=== PATIENT | male | born 1985 | race African-American/Black ===

== ENCOUNTER 2018-04-12 11:56 | Emergency (ER) | payer MEDICAID, OTHER ==
[~2018-04-12] VITALS: Ht 162.6 cm; Wt 99.8 kg
[2018-04-12 12:15] VITALS: BP 141/69
== END 2018-04-12 13:46 | disposition home or self-care (01) ==
LOC: ER 12:14
DX: Z76.0 Encounter for issue of repeat prescription (principal)

== ENCOUNTER 2018-04-28 02:35 | Emergency (ER) | payer MEDICAID ==
[~2018-04-28] VITALS: Ht 162.6 cm; Wt 99.8 kg
[2018-04-28 02:38] VITALS: BP 137/89
== END 2018-04-28 03:55 | disposition left against medical advice (07) ==
LOC: ER 02:38
DX: N50.811 Right testicular pain (principal); Z53.21 Procedure and treatment not carried out due to patient leaving prior to being seen by health care provider

== ENCOUNTER 2020-04-23 19:28 | Emergency (ER) | payer MEDICAID ==
[~2020-04-23] VITALS: Ht 162.6 cm; Wt 109.3 kg
[2020-04-23 20:09] VITALS: BP 160/85
[2020-04-23] MEDS ORDERED: SODIUM CHLORIDE 0.9% 1,000 ML IV ONE (20:15)
[2020-04-23 22:19] LABS: Urine Bacteria NONE SEEN /hpf (None Seen); Urine Blood 3+ /uL (Negative); Urine Mucus FEW (None Seen); Urine Specific Gravity 1.017 (1.001-1.035); Urine WBC 6 /hpf (0 - 3)
[2020-04-23] MEDS ORDERED: IBUPROFEN 600 MG TAB PO ONE (23:30)
[2020-04-23 23:45] LABS: Basophils # (auto) 0.1 10 ^3/uL (0-0.2); Basophils % (auto) 0.4 % (0.0-2.0); Eosinophils # (auto) 0.1 10 ^3/uL (0-0.8); Eosinophils % (auto) 0.4 % (0.0-7.0); Hematocrit 48.2 % (41.0-53.0); Lymphocytes # (auto) 1.8 10 ^3/uL (0.4-5.4); Lymphocytes % (auto) 12.6 % (10.0-50.0); Mean Corpuscular Hgb Conc. 33.2 g/dL (32.0-36.0); Mean Corpuscular Volume 84.1 fL (80.0-100.0); Monocytes # (auto) 1.1 10 ^3/uL (0-1.3); Monocytes % (auto) 7.9 % (0.0-12.0); Neutrophils # (auto) 11.1 10 ^3/uL (1.6-8.6); Neutrophils % (auto) 78.7 % (37.0-80.0); Nucleated Red Blood Cells % 0.1 %; Platelet Count (auto) 220 10^3/uL (140-450); Red Blood Cells 5.73 10^6/uL (4.5-5.90); Red Cell Distribution Width 13.9 % (11.8-14.3); White Blood Cell 14.1 10^3/uL (4.4-10.8)
[2020-04-24 00:07] LABS: Albumin 3.9 g/dL (3.4-5.0); Potassium 4.1 mmol/L (3.5-5.1)
[2020-04-24 00:10] LABS: BUN/Creatinine Ratio 11.1; Bilirubin, Direct 0.2 mg/dL (0-0.2); Bilirubin, Total 0.5 mg/dL (0.2-1.0); Total Protein 8.4 g/dL (6.4-8.2)
== END 2020-04-24 06:51 | disposition left against medical advice (07) ==
LOC: ER 19:28
DX: N50.819 Testicular pain, unspecified (principal); Z53.21 Procedure and treatment not carried out due to patient leaving prior to being seen by health care provider
CPT/HCPCS: 76870; 80048; 80076; 81001; 83605

== ENCOUNTER 2022-11-04 03:30 | Emergency (ER) | payer MEDICAID ==
[~2022-11-04] VITALS: Ht 162.6 cm; Wt 86.0 kg
[2022-11-04] MEDS ORDERED: BACDST PO (04:10)
[2022-11-04] MEDS ORDERED: CEPH500C PO (04:10)
[2022-11-04 05:39] VITALS: BP 135/86; PULSE 78; RESP 18; TEMP 97.8; O2SAT 97
== END 2022-11-04 05:40 | disposition home or self-care (01) ==
LOC: ER 03:30
DX: L02.416 Cutaneous abscess of left lower limb (principal); L02.415 Cutaneous abscess of right lower limb; Z88.6 Allergy status to analgesic agent

== ENCOUNTER 2022-12-09 21:36 | Emergency (ER) | payer MEDICAID ==
[~2022-12-09] VITALS: Ht 162.6 cm; Wt 104.0 kg
[2022-12-09 21:36] VITALS: BP 113/77; PULSE 106; RESP 18; O2SAT 97
[~2022-12-09 21:36] MED LIST: BACDST PO; CEPH500C PO
[2022-12-09 22:17] LABS: Urine Bacteria NONE SEEN /hpf (None Seen); Urine Blood Negative /uL (Negative); Urine Clarity Clear (Clear); Urine Color Yellow (Yellow); Urine Mucus FEW (None Seen); Urine Protein, UAD 1+ (Negative); Urine Specific Gravity 1.028 (1.001-1.035); Urine WBC 1 /hpf (0 - 3)
[2022-12-09] MEDS ORDERED: AZITHROMYCIN 250 MG TAB PO ONE (23:30)
[2022-12-09] MEDS ORDERED: cefTRIAXone SOD 500 MG VL IM ONE (23:30)
[2022-12-10] MEDS ORDERED: CLOT1CRE TOP (00:37)
== END 2022-12-10 02:47 | disposition home or self-care (01) ==
LOC: ER 21:36
DX: N48.1 Balanitis (principal); Z79.899 Other long term (current) drug therapy; Z88.8 Allergy status to other drugs, medicaments and biological substances
CPT/HCPCS: 81001; 96372; 99283; J0696

== ENCOUNTER 2024-09-05 15:31 | Emergency (ER) | payer MEDICAID ==
[~2024-09-05] VITALS: Ht 162.6 cm; Wt 117.7 kg
[~2024-09-05 15:31] MED LIST changes: +CLOT1CRE TOP
[2024-09-05] MEDS ORDERED: DOXY-286 PO (17:32)
--- NOTE | 2024-09-05 17:33 | ED.PDOC ---
General HPI Comments 38-year-old male with a past medical history of HIV presents to the emergency department with a chief compliant of testicular pain onset 2 days. Patient states he had sexual intercourse with two different partners, males, did not use protection. Shortly after, patient began experiencing painful urination with burning sensation as well as testicular pain. Patient is compliant with HIV medication, has appointment with specialist in 2 months. No other symptoms or modifying factors present at this time. Denies fevers chills night sweats Denies pelvic pain Denies nausea vomiting diarrhea Denies blood in the urine or semen Denies current tobacco use Denies family history of prostate issues Chief Complaint: Urinary Time Seen by MD: 16:30 Primary Care Provider: UNK Reviewed notes: Nurses Notes, Medications, Allergies Allergies: Coded Allergies: Aspirin (Verified Allergy, Unknown, 09/26/21) Ketorolac Tromethamine (Verified Allergy, Unknown, 04/23/20) Home Meds Active Scripts Sulfamethoxazole W/Trimethopri (Bactrim Ds Tablet) 1 Tab Tb, 1 TAB PO BID for 10 Days, #20 TAB 0 Refills Prov:BOB HSIEH PAYROLL ASSISTANT 09/06/24 Doxycycline Hyclate (DOXYCYCLINE HYCLATE) 100 Mg Tab, 1 TAB PO BID for 7 Days, #14 TAB 0 Refills Prov:BOB HSIEH PAYROLL ASSISTANT 09/05/24 Clotrimazole (Clotrimazole Af) 1 % Cre, 1 APPLIC TOP TID for 7 Days, #30 CRE Prov:ROMY VEE MANUFACTURING PROCESS ENGINEER 12/10/22 Cephalexin Monohydrate (Cephalexin) 500 Mg Cap, 1 CAP PO QID for 10 Days, #40 CAP Prov:KARIE JORDAN PAYROLL ASSISTANT 11/04/22 Sulfamethoxazole W/Trimethopri (Bactrim Ds Tablet) 1 Tab Tb, 1 TAB PO BID for 10 Days, #20 TAB Prov:KARIE JORDAN PAYROLL ASSISTANT 11/04/22 Information Source: Patient Mode of Arrival: Ambulatory Severity: Moderate Timing: Days Duration: Since onset Prehospital treatment: None Onset: Following sexual contact Symptoms: Dysuria History of: STD Penile discharge: None Modifying factors: None associated signs and symptoms: Dysuria Past Medical History PAST MEDICAL HISTORY: HIV Surgical History: Denies all surgeries Family History Family History: Reviewed,noncontributory to illness, No family hx of Cancer, No family hx of DM, No family hx of Heart isaac, No family hx of HTN, No family hx ofKidney isaac, No family hx of Liver isaac, No family hx of Lung isaac, No family hx of Stroke Social History Smoker: Non-Smoker Alcohol: Denies ETOH Use Drugs: Denies Drug Use Lives In: Home All Other Systems: Reviewed and Negative (as per HPI) Physical Exam General Appearance: No Apparent Distress, Normal HEENT: Normal ENT Inspection, Pharynx Normal, TMs Normal Neck: Full Range of Motion, Non-Tender, Normal, Normal Inspection Respiratory: Chest Non-Tender, Lungs Clear, No Accessory Muscle Use, No Respiratory Distress, Normal Breath Sounds Cardiovascular: No Murmur, No Gallop, Regular Rate/Rhythm Breast Exam: Deferred Gastrointestinal: No Organomegaly, Non Tender, No Pulsatile Mass, Normal Bowel Sounds, Soft Genitalia: Deferred Pelvic: Deferred Rectal: Deferred Extremities: No calf tenderness, Normal capillary refill, Normal inspection, Normal range of motion, Non-tender, No pedal edema Musculoskeletal : Apperance: Normal Neurologic: Alert, No Motor Deficits, Normal Affect, Normal Mood, No Sensory Deficits Cerebellar Function: Normal Reflexes: Normal Skin: Dry, Normal Color, Warm Lymphatic: No Adenopathy Was a procedure done? Was a procedure done?: No Differential Diagnosis Kidney stone (Female): Other X-Ray, Labs, Meds, VS Vital Signs Date Time Temp Pulse Resp B/P (MAP) Pulse Ox O2 Delivery O2 Flow Rate FiO2 09/05/24 18:00 98.3 97 16 142/97 (112) 97 98.3 09/05/24 18:00 78 16 97 Room Air 09/05/24 16:02 98.4 98 16 152/100 (117) 97 98.4 Lab Test 09/05/24 17:29 09/05/24 16:29 Range/Units Urine Color Yellow Yellow Urine Clarity Clear Clear Urine pH 5.5 5.0-9.0 Urine Specific [place] 1.025 1.001-1.035 Urine Protein Negative Negative Urine Ketones Negative Negative Urine Blood Negative Negative /uL Urine Nitrite Negative Negative Urine Bilirubin Negative Negative Urine Urobilinogen Normal Negative mg/dL Urine Leukocyte Esterase 1+ Negative /uL Urine RBC 2 0 - 3 /hpf Urine Microscopic WBC 20 H 0-3 /HPF Urine Squamous Epithelial Cells None seen <5 /hpf Urine Bacteria None seen None Seen /hpf Urine Mucus Few None Seen Urine Glucose Normal Normal mg/dL Chlamydia trachomatis (JUSTIN) Negative Negative Neisseria gonorrhoeae (JUSTIN) Negative Negative X-Ray, Labs, Meds, VS Comment 38-year-old male with a past medical history of HIV presents to the emergency department with a chief compliant of testicular pain onset 2 days. Patient arrives alert and oriented, ABC's intact, afebrile, vital signs stable, saturating well in room air Urinalysis was ordered to rule out UTI or hematuria. Patient was given: Ceftriaxone 1000 mg PO. Tolerated medications with no adverse reaction. Additional MDM Review of External, Non-ED records: External records reviewed. Discussion with independent historian (EMS, family) history obtained from the patient/parents (if applicable) at bedside Chronic conditions affecting care: HIV Social determinants of health affecting care: None Consideration of admission (observation or admission): I considered escalation of care to admission for this patient, however given the reassuring workup, the patient is safe for outpatient management. Time of 1ST Reevaluation: 17:00 Reevaluation 1ST: Improved Patient Education/Counseling: Diagnosis, Treatment Family Education/Counseling: No Family Present Departure 1 Departure Time of Disposition: 17:29 Impression: Primary Impression: Urethritis Disposition: HOME / SELF CARE / HOMELESS Condition: Stable e-Prescriptions Sulfamethoxazole W/Trimethopri (Bactrim Ds Tablet) 1 Tab Tb 1 TAB PO BID for 10 Days, #20 TAB 0 Refills Prov: BOB HSIEH NP 09/06/24 Doxycycline Hyclate (DOXYCYCLINE HYCLATE) 100 Mg Tab 1 TAB PO BID for 7 Days, #14 TAB 0 Refills Prov: BOB HSIEH NP 09/05/24 Critical Care Note Critical Care Time?: No Stability Stability form required: No Heart Score Heart Score: Heart Score Response (Comments) Value History N/A 0 EKG N/A 0 Age N/A 0 Risk Factors N/A 0 Troponin N/A 0 Total 0 I personally scribed for BOB HSIEH NP ([email or web address]) on 09/05/24 at 17:47. Electronically submitted by Mary Oliver ([email or web address]). BOB HSIEH NP Sep 05, 2024 17:33
--- NOTE | 2024-09-05 17:40 | ED.PDOC ---
General HPI Comments 38-year-old male with a past medical history of HIV presents to the emergency department with a chief compliant of testicular pain onset 2 days. Patient states he had sexual intercourse with two different partners, males, did not use protection. Shortly after, patient began experiencing painful urination with burning sensation as well as testicular pain. Patient is compliant with HIV medication, has appointment with specialist in 2 months. No other symptoms or modifying factors present at this time. Denies fevers chills night sweats Denies pelvic pain Denies nausea vomiting diarrhea Denies blood in the urine or semen Denies current tobacco use Denies family history of prostate issues Denies rectal bleeding Chief Complaint: Urinary Time Seen by MD: 17:05 Primary Care Provider: UNK Reviewed notes: Medications, Allergies Allergies: Coded Allergies: Aspirin (Verified Allergy, Unknown, 09/26/21) Ketorolac Tromethamine (Verified Allergy, Unknown, 04/23/20) Home Meds Active Scripts Doxycycline Hyclate (DOXYCYCLINE HYCLATE) 100 Mg Tab, 1 TAB PO BID for 7 Days, #14 TAB 0 Refills Prov:BBO HSIEH CAMERA REPAIR TECHNICIAN 09/05/24 Clotrimazole (Clotrimazole Af) 1 % Cre, 1 APPLIC TOP TID for 7 Days, #30 CRE Prov:ROMY VEE RETAIL MANAGEMENT KEYHOLDER 12/10/22 Cephalexin Monohydrate (Cephalexin) 500 Mg Cap, 1 CAP PO QID for 10 Days, #40 CAP Prov:KARIE JORDAN CAMERA REPAIR TECHNICIAN 11/04/22 Sulfamethoxazole W/Trimethopri (Bactrim Ds Tablet) 1 Tab Tb, 1 TAB PO BID for 10 Days, #20 TAB Prov:KARIE JORDAN CAMERA REPAIR TECHNICIAN 11/04/22 Information Source: Patient Mode of Arrival: Ambulatory Severity: Moderate Timing: Days Duration: Since onset Prehospital treatment: None Onset: Following sexual contact Symptoms: Dysuria History of: STD Penile discharge: None Modifying factors: None associated signs and symptoms: Dysuria Past Medical History PAST MEDICAL HISTORY: HIV Surgical History: Denies all surgeries Family History Family History: Reviewed,noncontributory to illness, No family hx of Cancer, No family hx of DM, No family hx of Heart isaac, No family hx of HTN, No family hx ofKidney isaac, No family hx of Liver isaac, No family hx of Lung isaac, No family hx of Stroke Social History Smoker: Non-Smoker Alcohol: Denies ETOH Use Drugs: Denies Drug Use Lives In: Home All Other Systems: Reviewed and Negative (as per HPI) Physical Exam General Appearance: No Apparent Distress, Normal HEENT: Normal ENT Inspection, Pharynx Normal, TMs Normal Neck: Full Range of Motion, Non-Tender, Normal, Normal Inspection Respiratory: Chest Non-Tender, Lungs Clear, No Accessory Muscle Use, No Respiratory Distress, Normal Breath Sounds Cardiovascular: No Edema, No JVD, No Murmur, No Gallop, Normal Peripheral Pulses, Regular Rate/Rhythm Breast Exam: Deferred Gastrointestinal: No Organomegaly, Non Tender, No Pulsatile Mass, Normal Bowel Sounds, Soft Genitalia: Deferred Pelvic: Deferred Rectal: Deferred Extremities: No calf tenderness, Normal capillary refill, Normal inspection, Normal range of motion, Non-tender, No pedal edema Musculoskeletal : Apperance: Normal Neurologic: Alert, procurement cost coordinator II-XII nml as Tested, No Motor Deficits, Normal Affect, Normal Mood, No Sensory Deficits Cerebellar Function: Normal Reflexes: Normal Skin: Dry, Normal Color, Warm Lymphatic: No Adenopathy Was a procedure done? Was a procedure done?: No X-Ray, Labs, Meds, VS Vital Signs Date Time Temp Pulse Resp B/P (MAP) Pulse Ox O2 Delivery O2 Flow Rate FiO2 09/05/24 16:02 98.4 98 16 152/100 (117) 97 98.4 Lab Test 09/05/24 16:29 Range/Units Chlamydia trachomatis (JUSTIN) Pending Neisseria gonorrhoeae (JUSTIN) Pending X-Ray, Labs, Meds, VS Comment 38-year-old male with a past medical history of HIV presents to the emergency department with a chief compliant of testicular pain onset 2 days. Patient arrives alert and oriented, ABC's intact, afebrile, vital signs stable, saturating well in room air Peripheral IV insertion+ labs were ordered. CBC was ordered to exclude anemia, blood loss, or infection. BMP was ordered to exclude electrolyte abnormalities, renal failure, dehydration, hyperglycemia CMP was ordered to exclude electrolyte abnormalities, renal failure, dehydration, hyperglycemia and/or liver enzyme abnormalities. PT and INR were ordered to rule out coagulopathy. Troponin and BNP were ordered to rule out myocardial infarction, or congestive heart failure. Urinalysis was ordered to rule out UTI or hematuria. Labs in the ED showed (pertinent+ and then pertinent-) Patient was given: Ceftriaxone 1000 mg IM. Tolerated medications with no adverse reaction. Additional MDM Review of External, Non-ED records: External records reviewed. Discussion with independent historian (EMS, family) history obtained from the patient/parents (if applicable) at bedside Chronic conditions affecting care: HIV Social determinants of health affecting care: None Consideration of admission (observation or admission): I considered escalation of care to admission for this patient, however given the reassuring workup, the patient is safe for outpatient management. Time of 1ST Reevaluation: 17:35 Reevaluation 1ST: Improved Patient Education/Counseling: Diagnosis, Treatment Family Education/Counseling: No Family Present Departure 1 Departure e-Prescriptions Doxycycline Hyclate (DOXYCYCLINE HYCLATE) 100 Mg Tab 1 TAB PO BID for 7 Days, #14 TAB 0 Refills Prov: BOB HSIEH NP 09/05/24 Critical Care Note Critical Care Time?: No Stability Stability form required: No Heart Score Heart Score: Heart Score Response (Comments) Value History N/A 0 EKG N/A 0 Age N/A 0 Risk Factors N/A 0 Troponin N/A 0 Total 0 I personally scribed for BOB HSIEH CAMERA REPAIR TECHNICIAN ([email or web address]) on 09/05/24 at 17:40. Electronically submitted by Mary Oliver ([email or web address]). I personally scribed for BOB HSIEH NP ([email or web address]) on 09/05/24 at 17:56. Electronically submitted by Mary Oliver ([email or web address]). BOB HSIEH NP Sep 05, 2024 17:40
[2024-09-05] MEDS: cefTRIAXone SOD 1,000 MG VL IM ONE (17:56)
[2024-09-05 18:00] VITALS: BP 142/97; PULSE 78; RESP 16; TEMP 98.3; O2SAT 97
[2024-09-05 18:07] LABS: Urine Bacteria None Seen /hpf (None Seen)
[2024-09-05 18:17] LABS: Urine Blood Negative /uL (Negative); Urine Clarity Clear (Clear); Urine Color Yellow (Yellow); Urine Mucus FEW (None Seen); Urine Protein, UAD Negative (Negative); Urine Specific Gravity 1.025 (1.001-1.035); Urine Squamous Epithelial Cell None Seen /hpf (<5); Urine Urobilinogen Normal (Negative); Urine WBC 20 /HPF (0-3); Urine pH 5.5 (5.0-9.0)
[2024-09-06] MEDS ORDERED: BACDST PO (06:51)
[2024-09-06 13:07] LABS: Chlamydia Trachomatis, NAA Negative (Negative); Neisseria gonorrhoeae, NAA Negative (Negative)
== END 2024-09-05 18:03 | disposition home or self-care (01) ==
LOC: ER 15:34
DX: N34.2 Other urethritis (principal); Z21 Asymptomatic human immunodeficiency virus [HIV] infection status; Z88.6 Allergy status to analgesic agent
CPT/HCPCS: 81001; 87491; 87591; 96372; 99283; J0696

== ENCOUNTER 2024-10-24 06:33 | Inpatient (IN) | payer MEDICAID ==
[~2024-10-24] VITALS: Ht 162.6 cm; Wt 111.2 kg
[~2024-10-24 06:33] MED LIST changes: +DOXY-286 PO
[2024-10-24 07:28] LABS: Hematocrit 50.7 % (41.0-53.0); Hemoglobin 16.9 g/dL (13.5-17.5); Mean Corpuscular Hemoglobin 28.9 pg (28.0-32.0); Mean Corpuscular Volume 86.6 fL (80.0-100.0); Nucleated Red Blood Cells % 0.1 %
[2024-10-24 07:30] LABS: Urine Protein, UAD TRACE (Negative)
[2024-10-24 07:36] LABS: Anion Gap 11 (5-15); Carbon Dioxide 24 mmol/L (20-31); Chloride 104 mmol/L (98-107); Potassium 4.0 mmol/L (3.5-5.1); Sodium 139 mmol/L (136-145)
[2024-10-24 07:37] LABS: Calcium 10.4 mg/dL (8.7-10.4)
[2024-10-24 07:42] LABS: BUN/Creatinine Ratio 11.8 (10.0-20.0); Blood Urea Nitrogen 14 mg/dL (9-23); Glucose 104 mg/dL (74-106)
[2024-10-24 07:50] VITALS: PULSE 76; RESP 18; O2SAT 99
--- NOTE | 2024-10-24 08:01 | ED.PDOC ---
GI ASSESSMENT HPI Comments 38 y/o M, with PMHx of HIV and right inguinal hernia presents to the ED for CC of abdominal pain. Patient states, he has been experiencing RLQ abdominal pain that radiates to his right groin area and testicle onset, x3days. Patient reports that he has had painful, burning, and hesitancy on urination. Patient denies hematuria, back pain, flank pain, fever, nausea, or vomiting. No other associated symptoms, modifiers, recent injuries or sick contacts present at this time. Chief Complaint: Abdominal Pain Time Seen by MD: 08:00 Primary Care Provider: JACKSONK Reviewed Notes: Nurses Notes, Medications, Allergies Allergies: Coded Allergies: Aspirin (Verified Allergy, Unknown, 09/26/21) Ketorolac Tromethamine (Verified Allergy, Unknown, 04/23/20) Home Meds Active Scripts Sulfamethoxazole W/Trimethopri (Bactrim Ds Tablet) 1 Tab Tb, 1 TAB PO BID for 10 Days, #20 TAB 0 Refills Prov:BOB HSIEH CARDIOVASCULAR INVASIVE SPECIALIST 09/06/24 Doxycycline Hyclate (DOXYCYCLINE HYCLATE) 100 Mg Tab, 1 TAB PO BID for 7 Days, #14 TAB 0 Refills Prov:BOB HSIEH CARDIOVASCULAR INVASIVE SPECIALIST 09/05/24 Clotrimazole (Clotrimazole Af) 1 % Cre, 1 APPLIC TOP TID for 7 Days, #30 CRE Prov:ROMY VEE STILL PUMP OPERATOR 12/10/22 Cephalexin Monohydrate (Cephalexin) 500 Mg Cap, 1 CAP PO QID for 10 Days, #40 CAP Prov:KARIE JORDAN CARDIOVASCULAR INVASIVE SPECIALIST 11/04/22 Sulfamethoxazole W/Trimethopri (Bactrim Ds Tablet) 1 Tab Tb, 1 TAB PO BID for 10 Days, #20 TAB Prov:KARIE JORDAN Q CARDIOVASCULAR INVASIVE SPECIALIST 11/04/22 Information Source: Patient Mode of Arrival: Ambulatory Timing: Days Duration: Since onset Prehospital treatment: None Quality: None Vomitus: None Stool: Normal Severity: Moderate Recent: None Recent Hx of: HIV Pain Location: RLQ Modifying Factors: Nothing Associated sign and symptoms: Abdominal Pain Past Medical History PAST MEDICAL HISTORY: HIV Surgical History: Denies all surgeries Family History Family History: Reviewed,noncontributory to illness, No family hx of Cancer, No family hx of DM, No family hx of Heart isaac, No family hx of HTN, No family hx ofKidney isaac, No family hx of Liver isaac, No family hx of Lung isaac, No family hx of Stroke Social History Smoker: Non-Smoker Alcohol: Denies ETOH Use Drugs: Denies Drug Use Lives In: Home Constitutional: denies: chills, diaphoresis, fatigue, fever, malaise, sweats, weakness, others EENTM: denies: blurred vision, double vision, ear bleeding, ear discharge, ear drainage, ear pain, ear ringing, eye pain, eye redness, hearing loss, mouth pain, mouth swelling, nasal discharge, nose bleeding, nose congestion, nose pain, photophobia, tearing, throat pain, throat swelling, voice changes, others Respiratory: denies: cough, hemoptysis, orthopnea, SOB at rest, shortness of breath, SOB with excertion, stridor, wheezing, others Cardiovascular: denies: chest pain, dizzy spells, diaphoresis, Dyspnea on exertion, edema, irregular heart beat, left arm pain, lightheadedness, palpitations, PND, syncope, others Gastrointestinal: reports: abdominal pain; denies: abdomen distended, blood streaked bowels, constipated, diarrhea, dysphagia, difficulty swallowing, hematemesis, melena, nausea, poor appetite, poor fluid intake, rectal bleeding, rectal pain, vomiting, others Genitourinary: denies: burning, dysuria, flank pain, frequency, hematuria, incontinence, penile discharge, penile sore, pain, testicle pain, testicle swelling, urgency, others Neurological: denies: dizziness, fainting, headache, left sided numbness, left sided weakness, numbness, paresthesia, pre-existing deficit, right sided numbness, right sided weakness, seizure, speech problems, tingling, tremors, weakness, others Musculoskeletal: denies: back pain, gout, joint pain, joint swelling, muscle pain, muscle stiffness, neck pain, others Integumetry: denies: bruises, change in color, change in hair/nails, dryness, laceration, lesions, lumps, rash, wounds, others Allergic/Immunocompromised: denies: Difficulty Healing, Frequent Infections, Hives, Itching, others Hematologic/Lymphatic: denies: anemia, blood clots, easy bleeding, easy brui sing, swollen glands, others Endocrine: denies: excessive hunger, excessive sweating, excessive thirst, ex cessive urination, flushing, intolerance to cold, intolerance to heat, unexplained weight gain, unexplained weight loss, others Psychiatric: denies: anxiety, bipolar disorder, depression, hopeless, panic disorder, schizophrenia, sleepless, suicidal, others All Other Systems: Reviewed and Negative Physical Exam General Appearance: Moderate Distress HEENT: Pharynx Normal Neck: Normal Inspection Respiratory: No Respiratory Distress Cardiovascular: No Edema Breast Exam: Deferred Gastrointestinal: RLQ, Tenderness Genitalia: Deferred Pelvic: Deferred Rectal: Deferred Extremities: No pedal edema Neurologic: No Motor Deficits Cerebellar Function: NOT DONE Reflexes: NOT DONE Skin: Normal Color Lymphatic: NOT DONE Was a procedure done? Was a procedure done?: No GI differential Dx Differential Diagnosis: Hernia X-Ray, Labs, Meds, VS Vital Signs Date Time Temp Pulse Resp B/P (MAP) Pulse Ox O2 Delivery O2 Flow Rate FiO2 10/24/24 08:56 89 18 112/70 10/24/24 08:26 89 17 112/70 10/24/24 08:12 98.7 89 17 112/70 (84) 98 98.7 10/24/24 07:50 76 18 99 Room Air* 0 21 10/24/24 07:33 84 16 95 Room Air 10/24/24 07:33 98.7 84 16 143/97 (112) 95 98.7 10/24/24 06:43 97.7 88 16 153/92 (112) 97 97.7 Lab Test 10/24/24 06:54 10/24/24 06:41 Range/Units White Blood Count 12.9 H 4.4-10.8 10^3/uL Red Blood Count 5.86 4.5-5.90 10^6/uL Hemoglobin 16.9 13.5-17.5 g/dL Hematocrit 50.7 41.0-53.0 % Mean Corpuscular Volume 86.6 80.0-100.0 fL Mean Corpuscular Hemoglobin 28.9 28.0-32.0 pg Mean Corpuscular Hemoglobin Concent 33.4 32.0-36.0 g/dL Red Cell Distribution Width 14.7 H 11.8-14.3 % Platelet Count 227 140-450 10^3/uL Mean Platelet Volume 10.0 6.9-10.8 fL Neutrophils (%) (Auto) 77.3 37.0-80.0 % Lymphocytes (%) (Auto) 15.7 10.0-50.0 % Monocytes (%) (Auto) 6.2 0.0-12.0 % Eosinophils (%) (Auto) 0.5 0.0-7.0 % Basophils (%) (Auto) 0.3 0.0-2.0 % Neutrophils # (Auto) 10.0 H 1.6-8.6 10 ^3/uL Lymphocytes # (Auto) 2.0 0.4-5.4 10 ^3/uL Monocytes # (Auto) 0.8 0-1.3 10 ^3/uL Eosinophils # (Auto) 0.1 0-0.8 10 ^3/uL Basophils # (Auto) 0 0-0.2 10 ^3/uL Nucleated Red Blood Cells 0.1 % Sodium Level 139 136-145 mmol/L Potassium Level 4.0 3.5-5.1 mmol/L Chloride Level 104 98-107 mmol/L Carbon Dioxide Level 24 20-31 mmol/L Anion Gap 11 5-15 Blood Urea Nitrogen 14 9-23 mg/dL Creatinine 1.19 0.700-1.30 mg/dL Glomerular Filtration Rate Calc 81 >90 mL/min BUN/Creatinine Ratio 11.8 10.0-20.0 Serum Glucose 104 74-106 mg/dL Calcium Level 10.4 8.7-10.4 mg/dL Urine Color Yellow Yellow Urine Clarity Clear Clear Urine pH 5.5 5.0-9.0 Urine Specific [place] 1.036 H 1.001-1.035 Urine Protein Trace H Negative Urine Ketones Negative Negative Urine Blood Negative Negative /uL Urine Nitrite Negative Negative Urine Bilirubin Negative Negative Urine Urobilinogen Normal Negative mg/dL Urine Leukocyte Esterase Negative Negative /uL Urine RBC 3 0 - 3 /hpf Urine Microscopic WBC 2 0-3 /HPF Urine Squamous Epithelial Cells Few <5 /hpf Urine Bacteria None seen None Seen /hpf Urine Mucus Few None Seen Urine Sperm Present None Seen /hpf Urine Glucose Normal Normal mg/dL Current Medications Medications (Trade) Dose Ordered Sig/Darron Route Start Time Stop Time Status Last Admin Sodium Chloride 1,000 ml @ 1,000 mls/hr Q1H ONCE IV 10/24/24 08:00 10/24/24 08:59 DC 7/28/25 08:26 Morphine Sulfate 4 mg ONCE ONCE IV 10/24/24 08:00 10/24/24 08:01 DC 10/24/24 08:26 Ondansetron HCl (Zofran) 4 mg ONCE ONCE IV 10/24/24 08:00 10/24/24 08:01 DC 10/24/24 08:26 [place] [id number] Ph: [phone] DIAGNOSTIC IMAGING Diagnostic Imaging Report : [id number] Signed PATIENT: MANAV PROCTOR ACCT: [id number] UNIT: [id number] : 1985 LOC: ER ROOM / BED: / AGE / SEX: 38 / M ADM STATUS: REG ER SERVICE [id number] ORDERING PHYSICIAN: GIOVANNA QUINTANA MD PROCEDURE(s): ABPLIV - CT AB PEL WITH IV CON ONLY REASON: rlq pain, c/f hernia ORDER NUMBER(s): [id number], ACCESSION NUMBER(s): [id number] CT CT AB PEL WITH IV CON ONLY INDICATION: rlq pain, c/f hernia EXAM DATE: 10/24/2024 08:51 AM COMPARISON: None RADIATION DOSE: CTDIvol: 20 mGy, DLP: 1210 mGy*cm PROCEDURE: Helical CT images were obtained of the abdomen and pelvis with IV contrast Sagittal and coronal reconstructions are provided. ORAL CONTRAST: None. ADDITIONAL IMAGES / REFORMATS: None All CT scans at this medical facility are performed using dose modulation techniques as appropriate to a performed exam including the following: Automated exposure control was utilized; adjustment of the MA and/or KV according to patient size; and use of iterative reconstruction technique. FINDINGS: LUNG BASE: Normal. LIVER: Normal. GALLBLADDER AND BILIARY TREE: No calcified gallstones. Normal caliber wall. No intra- or extrahepatic biliary ductal dilation. PANCREAS: Normal. SPLEEN: Normal. BOWEL: Normal. Normal appendix. ADRENALS: Normal. KIDNEYS AND URETER: 2.7 cm right kidney cyst. BLADDER: Normal. REPRODUCTIVE ORGANS: Normal. LYMPH NODES:No lymphadenopathy. PERITONEUM: No ascites or free air. No other fluid collection. VESSELS: Scattered atherosclerotic calcifications are noted. RETROPERITONEUM: Normal. ABDOMINAL WALL: Fat containing right inguinal hernia. BONES: Scattered osseous degenerative changes are noted. IMPRESSION: No acute intraabdominal abnormality. Normal appendix. Fat containing right inguinal hernia. ATED BY: PINO MONTGOMERY MD DICTATED DATE/TIME: 10/24/24924 SIGNED BY: PINO MONTGOMERY MD SIGNED DATE/TIME: 10/24/24924 CC: Time of 1ST Reevaluation: 08:30 Reevaluation 1ST: Unchanged Patient Education/Counseling: Diagnosis, Treatment Family Education/Counseling: No Family Present SEPSIS Sepsis Screen Date sepsis recognized/suspect: Oct 24, 2024 Time Sepsis recognized/suspect: 751 Recent Procedure: No On Antibiotic Therapy: No Respiratory Rate >20: No Heart Rate >90: No Temp<36 C (96.8 F) or >38.3 C: No SBP <90 or MAP <65 mmHG: No New Acute Mental Status Change: No Is the patient on CPAP, BIPAP,: No Physician Orders Ct Ab Pel With Iv Con Only (10/24/24 07:57) Vital Signs Date Time Temp Pulse Resp B/P (MAP) Pulse Ox O2 Delivery O2 Flow Rate FiO2 10/24/24 08:56 89 18 112/70 10/24/24 08:26 89 17 112/70 10/24/24 08:12 98.7 89 17 112/70 (84) 98 98.7 10/24/24 07:50 76 18 99 Room Air* 0 21 10/24/24 07:33 84 16 95 Room Air 10/24/24 07:33 98.7 84 16 143/97 (112) 95 98.7 10/24/24 06:43 97.7 88 16 153/92 (112) 97 97.7 Laboratory Tests Test 10/24/24 06:54 White Blood Count 12.9 10^3/uL (4.4-10.8) H Medications Medications Dose Ordered Sig/Darron Route Start Time Stop Time Status Last Admin Dose Admin Morphine Sulfate 4 mg ONCE ONCE IV 10/24/24 08:00 10/24/24 08:01 DC 10/24/24 08:26 Ondansetron HCl 4 mg ONCE ONCE IV 10/24/24 08:00 10/24/24 08:01 DC 10/24/24 08:26 Sodium Chloride 1,000 ml @ 1,000 mls/hr Q1H ONCE IV 10/24/24 08:00 10/24/24 08:59 DC 10/24/24 08:26 Departure 1 Departure Time of Disposition: 10:17 (Patient presented with abdominal pain that was concerning for possible appendicits, gastritis, cholecystitis, colitis, gastroenteritis, sbo, or orther possible surgical emergency. Data: 1. I ordered and reviewed the result of at least 3 labs including a CBC, BMP, and Urinalysis. 2. I independently interpreted the following tests: CT Abdoment and Pelvis is concerning for fat containing inguinal hernia .Risk:This patient has a high risk of morbidity due to further diagnostic testing or treatment and may suffer from an acute abdominal process disorder. Workup reveals intractable abdominal pain and inguinal hernia and patient should be admitted for further workup. and possible expert consultation. ) Impression: Primary Impression: Intractable abdominal pain Additional Impression: Inguinal hernia Qualified Codes: K40.90 - Unilateral inguinal hernia, without obstruction or gangrene, not specified as recurrent Disposition: 09 ADMITTED INPATIENT Admit to: Med Surg Condition: Serious Critical Care Note Critical Care Time?: Yes Critical care comment: Intractable abdominal pain Authorized and Performed by: Giovanna Quintana MD Total critical care time: Approximately 39 minutes Due to a high probability of clinically significant, life threatening deterioration, the patient required my highest level of preparedness to intervene emergently and I personally spent this critical care time directly and personally managing the patient. This critical care time included obtaining a history; examining the patient; pulse oximetry; ordering and review of studies; arranging urgent treatment with development of a management plan; evaluation of patient's response to treatment; frequent reassessment; and, discussions with other providers. This critical care time was performed to assess and manage the high probability of imminent, life-threatening deterioration that could result in multi-organ failure. It was exclusive of separately billable procedures and treating other patients and teaching time. Please see my other sections and the rest of the note for further information on patient assessment and treatment. Stability Stability form required: No Heart Score Heart Score: Heart Score Response (Comments) Value History N/A 0 EKG N/A 0 Age N/A 0 Risk Factors N/A 0 Troponin N/A 0 Total 0 I personally scribed for GIOVANNA QUINTANA MD ([email or web address]) on 10/24/24 at 08:00. Electronically submitted by Pema Lerma ([email or web address]). I personally scribed for GIOVANNA QUINTANA MD ([facility]) on 10/24/24 at 08:04. Electronically submitted by Pema Lerma ([email or web address]). I personally scribed for GIOVANNA QUINTANA MD ([facility]) on 10/24/24 at 08:06. Electronically submitted by Pema Lerma ([email or web address]). I personally scribed for GIOVANNA QUINTANA MD ([facility] on 10/24/24 at 09:32. Electronically submitted by Pema Lerma ([email or web address]). GIOVANNA QUINTANA MD Oct 24, 2024 08:00
[2024-10-24] MEDS: SODIUM CHLORIDE 0.9% 1,000 ML IV ONE (08:26)
[2024-10-24] MEDS: MORPHINE SULFATE 4 MG/ML SYR/VIAL IV ONE (08:26)
[2024-10-24] MEDS: ONDANSETRON HCL 4 MG/2 ML VIAL IV ONE (08:26)
[2024-10-24] MEDS: IOHEXOL 300 MG/ML 100ML BOTTLE IJ ONE (08:59)
--- NOTE | 2024-10-24 09:27 | DVH ---
CT CT AB PEL WITH IV CON ONLY INDICATION: rlq pain, c/f hernia EXAM DATE: 10/24/2024 08:51 AM COMPARISON: None RADIATION DOSE: CTDIvol: 20 mGy, DLP: 1210 mGy*cm PROCEDURE: Helical CT images were obtained of the abdomen and pelvis with IV contrast Sagittal and co luna reconstructions are provided. ORAL CONTRAST: None. ADDITIONAL IMAGES / REFORMATS: None All CT s cans at this medical facility are performed using dose modulation techniques as appropriate to a perf ormed exam including the following: Automated exposure control was utilized; adjustment of the MA and /or KV according to patient size; and use of iterative reconstruction technique. FINDINGS: LUNG BASE: Normal. LIVER: Normal. GALLBLADDER AND BILIARY TREE: No calcified gallstones. Normal caliber wall. No intra- or extrahepatic biliary ductal dilation. PANCREAS: Normal. SPLEEN: Normal. BOWEL: Normal. Normal appendix. ADRENALS: Normal. KIDNEYS AND URETER: 2.7 cm right kidney cyst. BLADDER: Normal. REPRODUCTIVE ORGANS: Normal. LYMPH NODES:No lymphadenopathy. PERITONEUM: No ascites or free air. No other fluid collection. VESSELS: Scattered atherosclerotic calcifications are noted. RETROPERITONEUM: Normal. ABDOMINAL WALL: Fat containing right inguinal hernia. BONES: Scattered osseous degenerative changes are noted. IMPRESSION: No acute intraabdominal abnormality. Normal appendix. Fat containing right inguinal hernia.
[2024-10-24] MEDS ORDERED: ELVI1TAB5 PO (12:34)
[2024-10-24] MEDS ORDERED: DOCUSATE SOD 100 MG CAP PO PRN (12:45)
[2024-10-24] MEDS ORDERED: ONDANSETRON HCL 4 MG/2 ML VIAL IV PRN (12:45)
[2024-10-24] MEDS ORDERED: HYDROcodone-ACET 5/325MG TAB PO PRN (12:45)
[2024-10-24] MEDS ORDERED: ACETAMINOPHEN 325 MG TAB PO PRN (12:45)
--- NOTE | 2024-10-24 13:06 | DVHHP2 ---
History of Present Illness Reason for Visit: Abdominal pain History of Present Illness Matheus Pedersen is a 38-year-old male with past medial history of kidney stones, and HIV, who came to the hospital for abdominal pain. Patient states he has been experiencing abdominal pain for a little over 2 weeks. He has gone to 2 other hospitals with different diagnosis. He was given antibiotics for possible STD that he later learned were negative, and he was also told that he has a hernia. He has an outpatient appointment with a surgeon for next month, but came to the hospital today due to the pain. He states the pain in his right groin is worsening and he can not tolerate it anymore. He states it makes it difficult for him to urinate. Infectious disease: HIV Renal/: Other (kidney stones) Past Surgical History: Other (lithotripsy) Smoke: No ALCOHOL: occassional Drugs: Marijuana, Other (crystal meth) Lives: with Family Domestic Violence: Neg Review of Systems Constitutional: No: Fever, Chills, Sweats, Weakness, Malaise, Other Eyes: No: Pain, Vision change, Conjunctivae inflammation, Eyelid inflammation, Other, Redness ENT: No: Ear pain, Ear discharge, Nose pain, Nose discharge, Nose congestion, Mouth pain, Mouth swelling, Throat pain, Throat swelling, Other Respiratory: No: Cough, Dry, Shortness of breath, SOB with excertion, Wheezing, Hemoptysis, Pleuritic Pain, Sputum, Wheezing, Other Cardiovascular: No: Chest Pain, Palpitations, Orthopnea, Paroxysmal Noc. Dyspnea, Edema, Lt Headedness, Other Gastrointestinal: Abdominal Pain (right groin); No: Nausea, Vomiting, Diarrhea, Constipation, Melena, Hematochezia, Other Genitourinary: No Dysuria, No Frequency, No Incontinence, No Hematuria, No Retention, No Other Musculoskeletal: No: other, neck pain, shoulder pain, arm pain, back pain, hand pain, leg pain, foot pain Skin: No: Rash, Lesions, Jaundice, Bruising, Other Neurological: No: Weakness, Numbness, Incoordination, Change in speech, Confusion, Seizures, Other Allergies: Coded Allergies: Aspirin (Verified Allergy, Unknown, 09/26/21) Ketorolac Tromethamine (Verified Allergy, Unknown, 04/23/20) Exam Vital Signs Vital Signs Date Time Temp Pulse Resp B/P (MAP) Pulse Ox O2 Delivery O2 Flow Rate FiO2 10/24/24 10:38 98.2 91 17 147/97 (114) 98 98.2 10/24/24 07:50 Room Air* 0 21 General Appearance: Alert, Oriented X3, Cooperative, moderate distress HEENT: Atraumatic, PERRLA Respiratory: Clear to auscultation, Normal air movement Cardiovascular: Regular rate, Normal S1, Normal S2, No murmurs Abdominal: Normal bowel sounds, Soft, Other (right groin pain) Extremities: No clubbing, No cyanosis, No edema, Normal pulses Skin: No rashes, No breakdown, No significant lesion Neuro: Normal gait, Normal speech, Strength at 5/5 X4 ext, Normal tone Psych/Mental Status: Mental status NL, Mood NL Labs/Xrays Labs Test 10/24/24 06:54 10/24/24 06:41 Range/Units White Blood Count 12.9 H 4.4-10.8 10^3/uL Red Blood Count 5.86 4.5-5.90 10^6/uL Hemoglobin 16.9 13.5-17.5 g/dL Hematocrit 50.7 41.0-53.0 % Mean Corpuscular Volume 86.6 80.0-100.0 fL Mean Corpuscular Hemoglobin 28.9 28.0-32.0 pg Mean Corpuscular Hemoglobin Concent 33.4 32.0-36.0 g/dL Red Cell Distribution Width 14.7 H 11.8-14.3 % Platelet Count 227 140-450 10^3/uL Mean Platelet Volume 10.0 6.9-10.8 fL Neutrophils (%) (Auto) 77.3 37.0-80.0 % Lymphocytes (%) (Auto) 15.7 10.0-50.0 % Monocytes (%) (Auto) 6.2 0.0-12.0 % Eosinophils (%) (Auto) 0.5 0.0-7.0 % Basophils (%) (Auto) 0.3 0.0-2.0 % Neutrophils # (Auto) 10.0 H 1.6-8.6 10 ^3/uL Lymphocytes # (Auto) 2.0 0.4-5.4 10 ^3/uL Monocytes # (Auto) 0.8 0-1.3 10 ^3/uL Eosinophils # (Auto) 0.1 0-0.8 10 ^3/uL Basophils # (Auto) 0 0-0.2 10 ^3/uL Nucleated Red Blood Cells 0.1 % Sodium Level 139 136-145 mmol/L Potassium Level 4.0 3.5-5.1 mmol/L Chloride Level 104 98-107 mmol/L Carbon Dioxide Level 24 20-31 mmol/L Anion Gap 11 5-15 Blood Urea Nitrogen 14 9-23 mg/dL Creatinine 1.19 0.700-1.30 mg/dL Glomerular Filtration Rate Calc 81 >90 mL/min BUN/Creatinine Ratio 11.8 10.0-20.0 Serum Glucose 104 74-106 mg/dL Calcium Level 10.4 8.7-10.4 mg/dL Urine Color Yellow Yellow Urine Clarity Clear Clear Urine pH 5.5 5.0-9.0 Urine Specific [place] 1.036 H 1.001-1.035 Urine Protein Trace H Negative Urine Ketones Negative Negative Urine Blood Negative Negative /uL Urine Nitrite Negative Negative Urine Bilirubin Negative Negative Urine Urobilinogen Normal Negative mg/dL Urine Leukocyte Esterase Negative Negative /uL Urine RBC 3 0 - 3 /hpf Urine Microscopic WBC 2 0-3 /HPF Urine Squamous Epithelial Cells Few <5 /hpf Urine Bacteria None seen None Seen /hpf Urine Mucus Few None Seen Urine Sperm Present None Seen /hpf Urine Glucose Normal Normal mg/dL CT AB PEL WITH IV CON ONLY FINDINGS: LUNG BASE: Normal. LIVER: Normal. GALLBLADDER AND BILIARY TREE: No calcified gallstones. Normal caliber wall. No intra- or extrahepatic biliary ductal dilation. PANCREAS: Normal. SPLEEN: Normal. BOWEL: Normal. Normal appendix. ADRENALS: Normal. KIDNEYS AND URETER: 2.7 cm right kidney cyst. BLADDER: Normal. REPRODUCTIVE ORGANS: Normal. LYMPH NODES:No lymphadenopathy. PERITONEUM: No ascites or free air. No other fluid collection. VESSELS: Scattered atherosclerotic calcifications are noted. RETROPERITONEUM: Normal. ABDOMINAL WALL: Fat containing right inguinal hernia. BONES: Scattered osseous degenerative changes are noted. IMPRESSION: No acute intraabdominal abnormality. Normal appendix. Fat containing right inguinal hernia. SEPSIS Sepsis Screen Date sepsis recognized/suspect: Oct 24, 2024 Time Sepsis recognized/suspect: 0752 Recent Procedure: No On Antibiotic Therapy: No Respiratory Rate >20: No Heart Rate >90: No Temp<36 C (96.8 F) or >38.3 C: No SBP <90 or MAP <65 mmHG: No New Acute Mental Status Change: No Is the patient on CPAP, BIPAP,: No Physician Orders Ct Ab Pel With Iv Con Only (10/24/24 07:57) * Surgical Consult (10/24/24 ) PTPTT (10/24/24 12:19) Vital Signs Date Time Temp Pulse Resp B/P (MAP) Pulse Ox O2 Delivery O2 Flow Rate FiO2 10/24/24 10:38 98.2 91 17 147/97 (114) 98 98.2 10/24/24 08:56 89 18 112/70 10/24/24 08:26 89 17 112/70 10/24/24 08:12 98.7 89 17 112/70 (84) 98 98.7 10/24/24 07:50 76 18 99 Room Air* 0 21 10/24/24 07:33 84 16 95 Room Air 10/24/24 07:33 98.7 84 16 143/97 (112) 95 98.7 10/24/24 06:43 97.7 88 16 153/92 (112) 97 97.7 Laboratory Tests Test 10/24/24 06:54 White Blood Count 12.9 10^3/uL (4.4-10.8) H Medications Medications Dose Ordered Sig/Darron Route Start Time Stop Time Status Last Admin Dose Admin Morphine Sulfate 4 mg ONCE ONCE IV 10/24/24 08:00 10/24/24 08:01 DC 10/24/24 08:26 4 MG Ondansetron HCl 4 mg ONCE ONCE IV 10/24/24 08:00 10/24/24 08:01 DC 10/24/24 08:26 4 MG Sodium Chloride 1,000 ml @ 1,000 mls/hr Q1H ONCE IV 10/24/24 08:00 10/24/24 08:59 DC 10/24/24 08:26 1,000 MLS/HR Assessment/Plan Assessment/Plan Assessment: Inguinal hernia, Leukocytosis, HIV, Illicit drug use, Plan: Admit to Med-Surg, Surgical consult, NPO, PT/PTT, Chest X-ray, Pain management, UDS, Plan discussed with: Patient My Orders Orders - CLEMENTE PALOMARES [employer] Procedure Category Date Status Time * Surgical Consult CONS 10/24/24 Transmitted Date of Service: Oct 24, 2024 Billing Provider: CLEMENTE PALOMARES Common Visit Codes: [id number] INP/OBS CARE (MOD) CLEMENTE PALOMARES Oct 24, 2024 13:06
[2024-10-24 13:25] VITALS: BP 154/91; PULSE 80; RESP 18; RESP 19; TEMP 97.5; O2SAT 95; O2SAT 96
[2024-10-24 13:29] LABS: INR 1.05 (0.9-1.15); Partial Thromboplastin Time 27.8 SEC (24.5-34.5); Prothrombin Time 11.1 sec (9.3-11.8)
[2024-10-24 13:44] LABS: Amphetamine Screen, Urine Pos (NEGATIVE); Barbiturate Scree,Urine Neg (NEGATIVE); Benzodiazephine Screen, Urine Neg (NEGATIVE); Opiate Scree,Urine Pos (NEGATIVE)
[2024-10-24 13:45] LABS: Cannabinoid Screen, Urine Pos (NEGATIVE); Cocaine Screen, Urine Neg (NEGATIVE); Phencyclidine Screen, Urine Pos (NEGATIVE)
[2024-10-24] MEDS: MORPHINE SULFATE INJ 2 MG/ml SYRG IV PRN (13:52)
--- NOTE | 2024-10-24 14:44 | DVH ---
EXAM: XY CHEST XRAY 1 VIEW HISTORY: Pre-Op COMPARISON: None TECHNIQUE: Portable AP view of the chest was performed. FINDINGS: No pneumothorax, consolidative infiltrates, or pulmonary edema. The heart is not enlarged. There is a bundant overlying adipose tissue. IMPRESSION: Obesity without evidence of acute intrathoracic process.
--- NOTE | 2024-10-24 16:08 | DVHINCON2 ---
Date of service: Oct 24, 2024 History of Present Illness 38-year-old male complaining of two week history of right inguinal pain with burning sensation in the right inguinal region. Patient was specialist to have elective surgery next month however pain was so severe that he came to the emergency room. This is his 3rd ER visit. Past Medical History HIV positive Past Surgical History None Family History: Patient reports no known family medical history. Family History Noncontributory Social History No alcohol, tobacco, IV drug use Allergies: Coded Allergies: Aspirin (Verified Allergy, Unknown, 09/26/21) Ketorolac Tromethamine (Verified Allergy, Unknown, 04/23/20) Home Meds Reported Medications Kmyjtukentqt-Zzahxqukwy-Dmpetc (Genvoya [id number] mg) 1 Tab Tab, 1 TAB PO DAILY 10/24/24 Discontinued Scripts Sulfamethoxazole W/Trimethopri (Bactrim Ds Tablet) 1 Tab Tb, 1 TAB PO BID for 10 Days, #20 TAB 0 Refills Prov:BOB HSIEH BENEFITS ADMINISTRATOR 09/06/24 Doxycycline Hyclate (DOXYCYCLINE HYCLATE) 100 Mg Tab, 1 TAB PO BID for 7 Days, #14 TAB 0 Refills Prov:BOB HSIEH BENEFITS ADMINISTRATOR 09/05/24 Clotrimazole (Clotrimazole Af) 1 % Cre, 1 APPLIC TOP TID for 7 Days, #30 CRE Prov:ROMY [employer]EE [employer] 12/10/22 Cephalexin Monohydrate (Cephalexin) 500 Mg Cap, 1 CAP PO QID for 10 Days, #40 CAP Prov:KARIE JORDAN Q BENEFITS ADMINISTRATOR 11/04/22 Sulfamethoxazole W/Trimethopri (Bactrim Ds Tablet) 1 Tab Tb, 1 TAB PO BID for 10 Days, #20 TAB Prov:KARIE JORDAN Q BENEFITS ADMINISTRATOR 11/04/22 Current Medications Current Medications Medications (Trade) Dose Ordered Sig/Darron Route PRN Reason Start Time Stop Time Status Last Admin Sodium Chloride 1,000 ml @ 75 mls/hr [id number] IV 10/24/24 12:45 Acetaminophen/ Hydrocodone Bitart (Ong 5/325MG Tab) 1 tab Q4HP PRN PO MODERATE PAIN (4-6 PAIN SCALE) 10/24/24 12:45 Ondansetron HCl (Zofran) 4 mg Q4HP PRN IV NAUSEA / VOMITING 10/24/24 12:45 Docusate Sodium (Colace Capsule) 100 mg BIDPRN PRN PO FOR CONSTIPATION 10/24/24 12:45 Acetaminophen (Tylenol Tablet) 650 mg Q6HP PRN PO PAIN SCALE 1-3 OR TEMP>100.4 10/24/24 12:45 Morphine Sulfate 2 mg Q4HPRN PRN IV SEVERE PAIN (7-10 PAIN SCALE) 10/24/24 12:45 10/24/24 13:52 Vital Signs Vital Signs Date Time Temp Pulse Resp B/P (MAP) Pulse Ox O2 Delivery O2 Flow Rate FiO2 10/24/24 13:52 80 18 154/91 10/24/24 13:25 97.5 95 97.5 10/24/24 13:25 Room Air* 0 21 Physical Exam GEN: Age-appropriate male in no acute distress. Alert. HEENT: Normocephalic atraumatic. Moist mucous membranes. Anicteric sclerae. CV: RRR Respiratory: CTAB ABD: Soft. Obese abdomen. Questionable right inguinal hernia. Difficult exam due to patient discomfort. CT abdomen and pelvis: Fat containing right inguinal hernia. Labs/Diagnostic Data Labs Test 10/24/24 12:55 10/24/24 06:54 10/24/24 06:41 Range/Units Prothrombin Time 11.1 9.3-11.8 sec Prothrombin Time INR 1.05 0.9-1.15 Activated Partial Thromboplast Time 27.8 24.5-34.5 SEC White Blood Count 12.9 H 4.4-10.8 10^3/uL Red Blood Count 5.86 4.5-5.90 10^6/uL Hemoglobin 16.9 13.5-17.5 g/dL Hematocrit 50.7 41.0-53.0 % Mean Corpuscular Volume 86.6 80.0-100.0 fL Mean Corpuscular Hemoglobin 28.9 28.0-32.0 pg Mean Corpuscular Hemoglobin Concent 33.4 32.0-36.0 g/dL Red Cell Distribution Width 14.7 H 11.8-14.3 % Platelet Count 227 140-450 10^3/uL Mean Platelet Volume 10.0 6.9-10.8 fL Neutrophils (%) (Auto) 77.3 37.0-80.0 % Lymphocytes (%) (Auto) 15.7 10.0-50.0 % Monocytes (%) (Auto) 6.2 0.0-12.0 % Eosinophils (%) (Auto) 0.5 0.0-7.0 % Basophils (%) (Auto) 0.3 0.0-2.0 % Neutrophils # (Auto) 10.0 H 1.6-8.6 10 ^3/uL Lymphocytes # (Auto) 2.0 0.4-5.4 10 ^3/uL Monocytes # (Auto) 0.8 0-1.3 10 ^3/uL Eosinophils # (Auto) 0.1 0-0.8 10 ^3/uL Basophils # (Auto) 0 0-0.2 10 ^3/uL Nucleated Red Blood Cells 0.1 % Sodium Level 139 136-145 mmol/L Potassium Level 4.0 3.5-5.1 mmol/L Chloride Level 104 98-107 mmol/L Carbon Dioxide Level 24 20-31 mmol/L Anion Gap 11 5-15 Blood Urea Nitrogen 14 9-23 mg/dL Creatinine 1.19 0.700-1.30 mg/dL Glomerular Filtration Rate Calc 81 >90 mL/min BUN/Creatinine Ratio 11.8 10.0-20.0 Serum Glucose 104 74-106 mg/dL Calcium Level 10.4 8.7-10.4 mg/dL Urine Color Yellow Yellow Urine Clarity Clear Clear Urine pH 5.5 5.0-9.0 Urine Specific [place] 1.036 H 1.001-1.035 Urine Protein Trace H Negative Urine Ketones Negative Negative Urine Blood Negative Negative /uL Urine Nitrite Negative Negative Urine Bilirubin Negative Negative Urine Urobilinogen Normal Negative mg/dL Urine Leukocyte Esterase Negative Negative /uL Urine RBC 3 0 - 3 /hpf Urine Microscopic WBC 2 0-3 /HPF Urine Squamous Epithelial Cells Few <5 /hpf Urine Bacteria None seen None Seen /hpf Urine Mucus Few None Seen Urine Sperm Present None Seen /hpf Urine Glucose Normal Normal mg/dL Urine Opiates Screen Pos NEGATIVE Urine Fentanyl Screen Pos NEGATIVE Urine Barbiturates Screen Neg NEGATIVE Urine Phencyclidine Screen Pos NEGATIVE Urine Amphetamines Screen Pos NEGATIVE Urine Benzodiazepines Screen Neg NEGATIVE Urine Cocaine Screen Neg NEGATIVE Urine Cannabinoids Screen Pos NEGATIVE Assessment 1. Right inguinal hernia Plan/Recommendation 1. Right inguinal hernia repair with mesh Informed consent: The surgery and its risks including but not limited to infection, bleeding, possible hernia recurrence, possible ischemic orchitis, possible postoperative neuralgia were explained to the patient. All questions were answered to his satisfaction. He expressed verbal understanding and wished to proceed with the surgery. Plan discussed with: Patient RADHA LASSITER MD Oct 24, 2024 16:08
[2024-10-24 16:24] VITALS: BP 116/65; PULSE 71; RESP 18; TEMP 97.7; O2SAT 96
[2024-10-24] MEDS: SODIUM CHLORIDE 0.9% 1,000 ML IV SCH (16:51)
[2024-10-24 17:29] VITALS: BP 116/76; PULSE 75; RESP 16; TEMP 97.3; O2SAT 96
[2024-10-24 21:00] VITALS: BP 139/80
[2024-10-25 06:07] LABS: Hematocrit 49.8 % (41.0-53.0); Hemoglobin 16.9 g/dL (13.5-17.5); Mean Corpuscular Hemoglobin 29.2 pg (28.0-32.0); Mean Corpuscular Volume 86.1 fL (80.0-100.0); Nucleated Red Blood Cells % 0.2 %
[2024-10-25 06:22] LABS: Alanine Aminotransferase 15 U/L (7-40); Albumin 4.2 g/dL (3.2-4.8); Alkaline Phosphatase 68 U/L (46-116); Anion Gap 7 (5-15); BUN/Creatinine Ratio 11.4 (10.0-20.0); Bilirubin, Total 0.6 mg/dL (0.2-1.0); Blood Urea Nitrogen 12 mg/dL (9-23); Calcium 9.0 mg/dL (8.7-10.4); Carbon Dioxide 26 mmol/L (20-31); Chloride 107 mmol/L (98-107); Glucose 100 mg/dL (74-106); Potassium 4.1 mmol/L (3.5-5.1); Sodium 140 mmol/L (136-145); Total Protein 6.8 g/dL (5.7-8.2)
[2024-10-25] MEDS ORDERED: ceFAZolin 1GM VL ONE (08:22)
[2024-10-25] MEDS ORDERED: LIDOCAINE W/ EPINEPHRINE 1% 20ML VIAL ONE (08:22)
[2024-10-25] MEDS ORDERED: METOCLOPRAMIDE HCL 5MG/ml INJ 2ml VIAL IV ONE (08:30)
[2024-10-25] MEDS ORDERED: HYDROmorphone HCL 2 MG/ML VL/or syr IV PRN ×2 (08:30)
[2024-10-25] MEDS ORDERED: KETOROLAC TROMETH 30 MG/ML 1ML VIAL IV ONE (08:30)
[2024-10-25] MEDS ORDERED: MORPHINE SULFATE INJ 2 MG/ml SYRG IV PRN (08:30)
[2024-10-25] MEDS ORDERED: MORPHINE SULFATE 4 MG/ML SYR/VIAL IV PRN (08:30)
[2024-10-25] MEDS ORDERED: HYDROmorphone HCL 2 MG/ML VL/or syr ONE (08:35)
[2024-10-25] MEDS ORDERED: MIDAZOLAM HCL 2MG/2ML 2ml VIAL (1mg/ml) ONE (08:35)
[2024-10-25] MEDS ORDERED: ONDANSETRON HCL 4 MG/2 ML VIAL ONE (08:35)
[2024-10-25] MEDS ORDERED: KETAMINE 50mg/ML 1ml syringe ONE (08:35)
[2024-10-25] MEDS ORDERED: fentaNYL CITRATE 100 MCG/2 ML VL ONE (08:35)
[2024-10-25] MEDS ORDERED: ROCURONIUM 10MG/ML 10ML VIAL IV ONE (08:35)
[2024-10-25] MEDS ORDERED: LIDOCAINE 1% INJ PF 5ML AMP ONE (08:35)
[2024-10-25] MEDS ORDERED: NEOSTIGMINE 1 MG/ML INJ (10mg/10ML VIAL) ONE (08:35)
[2024-10-25] MEDS ORDERED: SODIUM CHLORIDE LOCK 10 ML ONE (08:35)
[2024-10-25] MEDS ORDERED: GLYCOPYRROLATE 0.2 MG/ML 1ML VIAL ONE (08:35)
[2024-10-25] MEDS ORDERED: PROPOFOL 10 MG/ML 20 ML IV ONE (08:35)
[2024-10-25] MEDS ORDERED: LIDOCAINE HCL 2% TOP JELLY 5ML TOP ONE (08:45)
[2024-10-25] MEDS ORDERED: ceFAZolin 1GM/50ML 100 ML IV ONE (08:47)
[2024-10-25 09:00] VITALS: BP 124/84; PULSE 69; RESP 18; TEMP 97.6; O2SAT 97
--- NOTE | 2024-10-25 09:22 | DVHPN2 ---
Progress Note - Dictate Date Seen: Oct 25, 2024 Medical Necessity Reason Pt with a Central, PICC or Fol: No Subjective E: no major events o/n. patient refused surgery. he wants to get it done with his own surgeon as an elective basis. denies pain currently. vital signs Vital Sign Date Time Temp Pulse Resp B/P (MAP) Pulse Ox O2 Delivery O2 Flow Rate FiO2 10/24/24 21:24 75 17 134/64 10/24/24 20:00 Room Air* 0 21 10/24/24 17:29 97.3 96 97.3 Total Intake and Output 10/24/24 10/24/24 10/25/24 15:00 23:00 07:00 Intake Total 1000 ml 0 ml 450 ml Balance 1000 ml 0 ml 450 ml medications Current Medications Medications Dose Ordered Sig/Darron Route Start Time Stop Time Status Last Admin Dose Admin Sodium Chloride 1,000 ml @ 75 mls/hr [id number] IV 10/24/24 12:45 10/25/24 02:14 75 MLS/HR Acetaminophen/ Hydrocodone Bitart 1 tab Q4HP PRN PO 10/24/24 12:45 Ondansetron HCl 4 mg Q4HP PRN IV 10/24/24 12:45 Docusate Sodium 100 mg BIDPRN PRN PO 10/24/24 12:45 Acetaminophen 650 mg Q6HP PRN PO 10/24/24 12:45 Morphine Sulfate 2 mg Q4HPRN PRN IV 10/24/24 12:45 10/24/24 20:54 2 MG Morphine Sulfate 2 mg Q4H PRN IV 10/25/24 08:30 10/25/24 12:31 Morphine Sulfate 1 mg Q30M PRN IV 10/25/24 08:30 10/25/24 10:31 objective GEN: NAD RT INGUINAL: NT laboratory and microbiology Laboratory Tests 10/25/24 05:44 Test 10/25/24 05:44 Range/Units Serum Glucose 100 74-106 mg/dL Assessment/Plan A: 1. Right inguinal hernia P: 1. patient will f/u with his surgeon for repair. 2. surgery signing off. Plan discussed with: Patient RADHA LASSITER MD Oct 25, 2024 09:22
== END 2024-10-25 09:45 | disposition left against medical advice (07) | DRG 254 ==
LOC: ER 06:33 → OVERFLOW 12:32 → EAST 17:29
PROVIDERS: ADMIT Internal Medicine; ATTEND Internal Medicine
DX: K40.90 Unilateral inguinal hernia, without obstruction or gangrene, not specified as recurrent (principal); D72.829 Elevated white blood cell count, unspecified; F19.90 Other psychoactive substance use, unspecified, uncomplicated; Z53.29 Procedure and treatment not carried out because of patient's decision for other reasons; Z88.6 Allergy status to analgesic agent; Z87.442 Personal history of urinary calculi
CPT/HCPCS: 36415; 71045; 74177; 80048; 80053; 80307; 81001; 85025; 85610; 85730; 86850; 86900; 86901; 87081; 96361; 96374; 96375; 99291; G0378; J0690; J2250; J2405; J2704